=== PATIENT | female | born 1980 | race Two or more races ===

== ENCOUNTER 2018-12-28 05:31 | Day surgery (SDC) | payer OTHER ==
[2018-12-26 12:47] LABS: HEMOGLOBIN 13.8 g/dL (12.0-15.5); MEAN CORPUSCULAR HEMOGLOBIN 32.1 pg (27.0-33.4); MEAN CORPUSCULAR HGB CONC 35.3 g/dL (32.0-36.0); MEAN CORPUSCULAR VOLUME 91 fl (80-97); PLATELET COUNT 317 10^3/uL (150-450); RED BLOOD COUNT 4.29 10^6/uL (3.72-5.28); RED CELL DISTRIBUTION WIDTH 12.6 % (11.5-14.0); WHITE BLOOD COUNT 7.9 10^3/uL (4.0-10.5)
[2018-12-26 12:53] LABS: APPEARANCE,URINE SLIGHTLY-CLOUDY; BILIRUBIN,URINE NEGATIVE (NEGATIVE); COLOR,URINE YELLOW; GLUCOSE, URINE NEGATIVE (NEGATIVE); KETONES,URINE NEGATIVE (NEGATIVE); LEUKOCYTE ESTERASE,URINE NEGATIVE (NEGATIVE); NITRITE,URINE NEGATIVE (NEGATIVE); PROTEIN,URINE NEGATIVE (NEGATIVE); URINE SPECIFIC GRAVITY 1.014; UROBILINOGEN,URINE NEGATIVE mg/dL (<2.0)
[2018-12-27 17:48] LABS: ANION GAP 8 (5-19); BLOOD UREA NITROGEN 14 mg/dL (7-20); CALCIUM 10.1 mg/dL (8.4-10.2); CARBON DIOXIDE 26 mmol/L (22-30); CHLORIDE 105 mmol/L (98-107); GLUCOSE 85 mg/dL (75-110); POTASSIUM 3.8 mmol/L (3.6-5.0); SODIUM 139.3 mmol/L (137-145)
[~2018-12-28 05:31] MED LIST: LACTATED RINGERS 1000 ML IV PRN; LIDOCAINE 0.5% INJ-PF (5 MG/ML) 50 ML SDV SUBCUT PRN; RINGERS SOLUTION,LACTATED 1,000 ML IV PRN
[2018-12-28] MEDS ORDERED: FENTANYL CITRATE INJ/PF 100 MCG/2 ML AMPUL ONE (06:54)
[2018-12-28] MEDS ORDERED: KETOROLAC TROMETHAMINE 60 MG/2 ML SDV ONE (06:54)
[2018-12-28] MEDS ORDERED: PROPOFOL INJ 200 MG/20 ML VIAL IV ONE (06:55)
[2018-12-28] MEDS ORDERED: DEXAMETHASONE SOD PHOSPHATE INJ 4 MG/1 ML VIAL ONE (06:55)
[2018-12-28] MEDS ORDERED: MIDAZOLAM 2 MG/2 ML INJ ONE (06:55)
[2018-12-28] MEDS ORDERED: ONDANSETRON HCL INJ/PF 4 MG/2 ML SDV ONE (06:55)
[2018-12-28] MEDS ORDERED: LIDOCAINE 0.5% INJ-PF (5 MG/ML) 50 ML SDV ONE (07:00)
[2018-12-28] MEDS ORDERED: LIDOCAINE 1% INJ-PF (10 MG/ML) 30 ML SDV ONE (07:09)
[2018-12-28] MEDS ORDERED: OXYCODONE-ACETAMINOPHEN 5-325 MG TABLET PO PRN ×3 (07:32→08:00)
[2018-12-28] MEDS ORDERED: MORPHINE SULFATE 10 MG/ML INJ IV PRN (07:32)
[2018-12-28] MEDS ORDERED: ONDANSETRON HCL INJ/PF 4 MG/2 ML SDV IV PRN (07:32)
[2018-12-28] MEDS ORDERED: DIPHENHYDRAMINE HCL 50 MG/ML VIAL IV PRN (07:32)
[2018-12-28] MEDS ORDERED: MEPERIDINE HCL/PF INJ 25 MG/1 ML DISP.SYRIN IV PRN (07:32)
[2018-12-28] MEDS ORDERED: FENTANYL CITRATE INJ/PF 100 MCG/2 ML AMPUL IV PRN ×3 (07:32)
[2018-12-28] MEDS ORDERED: PROMETHAZINE HCL INJ 25 MG/1 ML VIAL IV PRN ×2 (07:32)
[2018-12-28] MEDS ORDERED: PROMETHAZINE HCL INJ 25 MG/1 ML VIAL IM PRN (08:00)
[2018-12-28] MEDS ORDERED: OXYCODONE-ACETAMINOPHEN 5-325 MG TABLET ONE (08:19)
[2018-12-28 09:39] VITALS: BP 94/64
[2018-12-28] MEDS ORDERED: IBUPROFEN 800 MG TABLET PO SCH (10:00)
--- NOTE | 2018-12-31 09:02 | OPERATIVE REPORT E ---
Operative Report NAME: LISA PHAM : 1980 AGE: 38Y DATE OF SURGERY: ROOM: PREOPERATIVE DIAGNOSIS: Retained intrauterine device (IUD), failed outpatient removal. POSTOPERATIVE DIAGNOSIS: Retained intrauterine device (IUD), failed outpatient removal. OPERATION: Hysteroscopic IUD retrieval. SURGEON: KAY LEA M.D. COMPLICATIONS: None. ANESTHESIA: LMAC, paracervical block. FINDINGS: IUD in normal position. String was approximately 2 cm up within the endocervical canal. INDICATIONS FOR PROCEDURE: The patient had failed outpatient removal on multiple attempts in the usual fashion in the office. Elected to proceed to hysteroscopic removal. The usual risks of bleeding, infection, anesthesia, damage to organs and tissues discussed, the patient understood. She is going to use NuvaRing postoperative for contraception. PROCEDURE: The patient was taken to the operating room and placed in a modified lithotomy position. After adequate anesthesia ascertained, paracervical block placed. Surgery timeout was then performed. EUA performed. Midplane uterus was noted. Hysteroscope was inserted after dilation of the cervix and tenaculum placed on the anterior lip of the cervix. IUD was noted in toto. String was identified and grasped with a hysteroscopic grasper and removed and discarded. At completion of procedure bleeding was nil. Patient taken to recovery in stable condition. . DICTATING PHYSICIAN: KAY LEA M.D. [id number] PHY#: [id number] ID: [id number] JOB#: [id number] ACCT: [id number] cc:KAY LEA M.D. >
== END 2018-12-28 09:15 | disposition home or self-care (01) ==
LOC: OROUT 05:31
PROVIDERS: ATTEND Specialist
DX: Z30.432 Encounter for removal of intrauterine contraceptive device (principal); Z87.891 Personal history of nicotine dependence
CPT/HCPCS: 86900; 86901; 36415 ×2; 86850; 85027; 81025; 80048; 81001; 58579; J2250; J1100; J1885; J3010; J3490 ×2; J2405; J2704; 952